=== PATIENT | female | born 2000 | race Native Hawaiian/Other Pacific Islander ===

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

== ENCOUNTER 2020-07-07 13:30 | Emergency (ER) | payer OTHER ==
[~2020-07-07] VITALS: Ht 167.6 cm; Wt 122.5 kg
[2020-07-07 13:34] VITALS: TEMP 98.6
[2020-07-07 13:58] LABS: PLATELET COUNT 243 K/uL (152-353)
[2020-07-07 14:03] LABS: POTASSIUM 3.8 mmol/L (3.6-5.2)
[2020-07-07 14:40] LABS: PARTIAL THROMBOPLASTIN TIME 21.7 SECONDS (24.5-33.6)
[2020-07-07 14:46] VITALS: BP 128/67
== END 2020-07-07 15:00 | disposition home or self-care (01) ==
LOC: ED 13:34
PROVIDERS: Hospitalist
DX: S16.1XXA Strain of muscle, fascia and tendon at neck level, initial encounter (principal); S39.012A Strain of muscle, fascia and tendon of lower back, initial encounter; V49.40XA Driver injured in collision with unspecified motor vehicles in traffic accident, initial encounter; Y92.89 Other specified places as the place of occurrence of the external cause
CPT/HCPCS: 80048; 80320; 85027; 85610; 85730; 99283